=== PATIENT | female | born 1995 | race Two or more races ===

== ENCOUNTER 2016-07-27 16:47 | Emergency (ER) | payer OTHER ==
[2016-07-27 17:06] VITALS: BP 135/72; PULSE 70; TEMP 98.2; BMI 33.3
[2016-07-27] MEDS ORDERED: SULFAMETHOXAZOLE/TRIMETHOPRIM 800MG/160MG D.S. TABLET ONE (17:45)
[2016-07-27] MEDS ORDERED: BACITRACIN 30 GM TUBE TOPICAL OINTMENT ONE (17:46)
[2016-07-27] MEDS ORDERED: BACITRACIN 30 GM TUBE TOPICAL OINTMENT TP ONE (18:00)
[2016-07-27] MEDS ORDERED: SULFAMETHOXAZOLE/TRIMETHOPRIM 800MG/160MG D.S. TABLET PO ONE (18:00)
--- NOTE | 2016-07-27 18:06 | PDOC ---
History of Present Illness - General Chief Complaint: Ingrown toenail Stated Complaint: INGROWN TOE NAIL Time Seen by Provider: 07/27/16 17:33 History Source: Patient Exam Limitations: No Limitations - History of Present Illness Initial Comments: 07/27/16 18:01 Patient came for evaluation of right great toe infection. suffers frequently from ingrown toenails, and approximate 2 weeks ago when she had a swelling and pain to her right great toe used her nail clippers and incised times to remove infected and swollen tissue. Since that time has progressively become worse in the house has a tender growth. Fevers, states had some purulent drainage yesterday 07/27/16 18:02 Timing/Duration: reports: changing over time, getting worse Severity: Yes: mild, moderate Location: reports: feet Associated Symptoms: reports: denies symptoms Past History - Travel Traveled outside of the country in the last 30 days: No Close contact w/someone who was outside of country & ill: No - Past Medical History Allergies/Adverse Reactions: Allergies Allergy/AdvReac Type Severity Reaction Status Date / Time No Known Allergies Allergy Verified 07/27/16 17:03 Home Medications: Ambulatory Orders NK [No Known Home Medication] 05/29/16 Disorders: Yes (ovarian cyst) Suicide Attempt (Hx): No - Reproductive History Cervical CA: No Dysfunctional Uterine Bleeding: No Ectopic : No Endometrial CA: No Polycystic Ovaries: No Therapeutic (s) & number: No Tubal Ligation: No - Immunization History Immunization Up to Date: Yes - Psycho/Social/Smoking Cessation Hx Anxiety: No Suicidal Ideation: No Smoking History: Never smoked Have you smoked in the past 12 months: No Information on smoking cessation initiated: No Hx Alcohol Use: No Drug/Substance Use Hx: No Substance Use Type: None Review of Systems - Review of Systems Able to Perform ROS?: Yes Is the patient limited Hungarian proficient: Yes Constitutional: Yes: Symptoms Reported, See HPI. No: Fever, Malaise HEENTM: No: Symptoms Reported Respiratory: No: Symptoms reported Musculoskeletal: Yes: Symptoms Reported Integumentary: Yes: Symptoms Reported, See HPI, Lesions All Other Systems: Reviewed and Negative *Physical Exam - Vital Signs Last Vital Signs Temp Pulse Resp BP Pulse Ox 98.2 F 70 18 135/72 100 07/27/16 17:04 07/27/16 17:04 07/27/16 17:04 07/27/16 17:04 07/27/16 17:04 - Physical Exam Comments: 07/27/16 18:04 General Appearance: Yes: Appropriately Dressed, Apparent Distress HEENT: positive: LEXA, Normal ENT Inspection, TMs Normal, Pharynx Normal Neck: positive: Supple. negative: Tender, Lymphadenopathy (R), Lymphadenopathy (L) Extremity: positive: Normal Capillary Refill, Normal Inspection, Normal Range of Motion, Swelling (with swelling, and overgrowth consistent with pyogenic granuloma to right great toe lateral aspect. Has full range of motion at toe, and no purulent drainage expressed.), Other Integumentary: positive: Normal Color, Dry Neurologic: positive: consulting software engineer II-XII NML intact, Fully Oriented, Alert, Normal Mood/ Affect, Normal Response, Motor Strength 5/5 Progress Note - Progress Note Progress Note: Pyogenic granuloma, soaked and dressed with bacitracin ointment and encouraged to continue same is frequently as possible. will treat with Bactrim, and referred to podiatry as soon as possible Saturday *DC/Admit/Observation/Transfer Diagnosis at time of Disposition: Pyogenic granuloma - Discharge Dispostion Disposition: HOME Condition at time of disposition: Stable Admit: No - Patient Instructions Additional Instructions: Rest, keep hand elevated Avoid heavy lifting or strenuous activity until healed Soak finger every 2-3 hours while awake for the next 2-3 days to keep continue to allow drainage Reapply bacitracin ointment and bulky dressing after each soaking May use ibuprofen or Tylenol for pain relief The medical administrative as soon as possible for reevaluation and excision of the growth Followup with private physician in one to 2 days for wound check as needed Return immediately to emergency department or private doctor's for worsening redness, swelling, pain, streaking Take all of antibiotics until completed - Post Discharge Activity Work/School Note: Back to Work
== END 2016-07-27 18:35 | disposition home or self-care (01) ==
LOC: JERFT 16:47
DX: L98.0 Pyogenic granuloma (principal)
CPT/HCPCS: 99281-25

== ENCOUNTER 2016-10-16 11:04 | Emergency (ER) | payer OTHER ==
[2016-10-16 11:15] VITALS: BP 120/83; PULSE 91; TEMP 98.7; BMI 32.0
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
[2016-10-16] MEDS ORDERED: ACETAMINOPHEN 500 MG TABLET (FP) PO ONE (14:02)
[2016-10-16] MEDS ORDERED: ACETAMINOPHEN 500 MG TABLET (FP) ONE (14:39)
== END 2016-10-16 15:02 | disposition home or self-care (01) ==
LOC: JER 11:04 → JERFT 11:04
DX: S00.83XA Contusion of other part of head, initial encounter (principal); R42 Dizziness and giddiness; Y04.2XXA Assault by strike against or bumped into by another person, initial encounter; Y93.89 Activity, other specified; Y92.89 Other specified places as the place of occurrence of the external cause; Y07.410 Brother, perpetrator of maltreatment and neglect
CPT/HCPCS: 70450-TC; 70486-TC; 84703; 99281-25